=== PATIENT | male | born 1980 | race Caucasian/White ===

== ENCOUNTER 2023-12-22 10:31 | Emergency (ER) | payer OTHER, SELFPAY ==
[2023-12-22 10:38] VITALS: BP 159/108
--- NOTE | 2023-12-22 11:04 | ED.GENMED ---
History of Present Illness
General
Chief Complaint: Chest Pain
Time Seen by Provider: 12/22/23 11:04
Travel History
Have you had any contact with someone who has COVID-19?: No
Do you have any symptoms of coronavirus? Fever > 100 degrees, chills, cough, shortness of breath, sore throat, loss of taste or smell, muscle aches, or headache?: No
History of Present Illness
History of Present Illness:
HPI: Patient presents with left-sided chest discomfort/shortness of breath over the past 2 weeks. This has been constant over the past 2 weeks and there has been no exertional worsening; there has been no worsening today but he was just frustrated
and concerned that has been ongoing and can get to see a nub card tender he try to get into see a nub card tender however cannot be seen in the [facility] area until January. His younger brother had a stent placed recently. His father also has
coronary disease however this patient has no other cardiac risk factors other than history of smoking. He has seen Dr. Pearce about 6 years ago.
EXAM:
GENERAL: Well appearing in no distress
HEENT: Moist oral mucosa
CARDIOVASCULAR: No murmurs, normal heart rate, regular rhythm, No chest wall tenderness
PULMONARY: No respiratory distress, breath sounds are clear and equal
ABDOMEN: Soft with no peritoneal signs, no tenderness
NEUROLOGIC: Excellent strength all extremities, no coordination deficits
PSYCHIATRIC: Appropriate mental status, normal insight and judgement
EXTREMITIES: Nontender, no edema, moves all extremities equally
SKIN: No rash, no lesions, tattoos noted
TIME OF INITIAL ENCOUNTER: 11:05 AM
NUMBER AND COMPLEXITY OF PROBLEMS ADDRESSED AT THE ENCOUNTER
� Chronic conditions affecting care: GERD
� Acute Exacerbation and/or Progression of Chronic Illness: This is an acute problem
� Differential Diagnosis includes: Noncardiac chest pain, ACS, exacerbation of GERD, pneumothorax unlikely, pneumonia very unlikely, PE
AMOUNT AND/OR COMPLEXITY OF DATA TO BE REVIEWED AND ANALYZED
� I performed an independent evaluation of and my interpretation is:
EKG: Sinus 66, leftward axis deviation, no acute ST abnormality
CT:
X-rays: Chest x-ray is unremarkable
Laboratory Studies: Troponin negative, D-dimer is low, other labs are unremarkable
Other:
� Review of other/old records: No old records available for review in [facility]
� Clinical information was obtained by an independent historian: I spoke to father at bedside
� Prescriptions/Medications Considered but not given:
� Further testing considered but not performed:
RISK OF COMPLICATIONS AND/OR MORBIDITY OR MORTALITY OF PATIENT MANAGEMENT
� Social determinants of health affecting care: Lives at home
� Discussion with other providers:
� Escalation of care including admission/observation vs risk of discharge considered: The patient has had 2 weeks of constant pain with no exertional symptoms and no worsening today. Troponin negative along with normal EKG.
However he does have a concerning family history and we are arranging close outpatient follow-up. On reassessment, the patient still has ongoing chest discomfort that is described as 'it is just there'. This has been constant for 2 weeks. Will
try dose of Toradol prior to discharge. He is to follow-up with [facility]
Phy Exam
Physical Exam
Physical Exam:
See HPI
Scores
Heart Score for Chest Pain Patients
STEMI patient?: Not applicable
Course
Orders/Labs/Results
Orders:
Orders
12/22/23 10:32
ECG [Electrocardiogram (*1)] Urgent
Reason for Study: Chest Pain
EKG- Treatment ONCE
12/22/23 11:12
CR Chest - 2 Views Urgent
Comment:
Reason For Exam: L CP; sob
12/22/23 11:19
Complete Blood Count/With Diff Urgent
Comprehensive Metabolic Panel Urgent
D-Dimer Urgent
Troponin I Urgent
12/22/23 13:01
Ketorolac [Toradol] 15 mg IV NOW STA
12/22/23 13:03
Ketorolac [Toradol] 15 mg .ROUTE .STK-MED ONE
12/22/23 13:05
Ketorolac [Toradol] 15 mg IM NOW STA
12/22/23 13:06
Ketorolac [Toradol] 15 mg IV NOW STA
Abnormal Lab Results
12/22/23
11:19
ALT 88 H U/L
(0-50)
12/22/23 11:19
12/22/23 11:19
Vital Signs
Initial and Last Documented VS:
Initial Vital Signs
Temp Pulse Resp BP Pulse Ox
98.9 F 84 16 159/108 100
12/22/23 10:38 12/22/23 10:38 12/22/23 10:38 12/22/23 10:38 12/22/23 10:38
Last Documented Vital Signs
Temp Pulse Resp BP Pulse Ox
98.9 F 63 13 151/100 100
12/22/23 10:38 12/22/23 11:30 12/22/23 11:30 12/22/23 11:15 12/22/23 11:30
*Critical Care Note
Total Time (30-74mins, 75-104mins- exclusive of procedures): Not Applicable
ED Attending Note
-
Portions of this chart may have been created with voice recognition software.� Occasional wrong word or��sound alike� substitutions may have occurred due to the inherent limitations of voice recognition software.
Discharge Plan
Departure
Patient Disposition: Home (Routine Discharge)
Date of Disposition: 12/22/23
Time of Disposition: 13:00
Patient with high blood pressure during this ER visit?: Yes
Discharge Problem:
Chest pain
Instructions: Chest Pain [facility] Follow Up
Prescriptions:
No Action
No Current Medications
0
Referrals:
NONE,* [Family Provider] -
Activity Restrictions/Additional Instructions:
Somebody from [facility] should be calling you for follow-up. Return here if worse. Cardiac blood work (troponin) as well as D-dimer (test for blood clot) are both negative. EKG is normal.
Interventions
Interventions:
*Risk Screen - Suicide Last Done: 12/22/23 11:16
*General Assessment Last Done: 12/22/23 11:16
*Neglect/Abuse Screening Last Done: 12/22/23 11:16
*ED COVID-19 Vaccine History Last Done: 12/22/23 10:38
ED- Cardiac Assessment Last Done: 12/22/23 11:16
Discharge Date and Time
Print Language: ARABIC
[2023-12-22 11:15] VITALS: BP 151/100
[2023-12-22 11:16] VITALS: BMI 26.4
[2023-12-22 11:36] LABS: % Basophils 0.4 % (0-2); % Eosinophils 0.3 % (0-6); % Immature Granulocytes 0.3 % (0-0.5); % Monocytes 7.6 % (1.7-9.3); % Neutrophils 65.4 % (42.2-75.2); Absolute Lymphocytes 1.8 10^3/uL (1.2-3.4); Absolute Monocytes 0.5 10^3/uL (0.1-0.6); Absolute Neutrophils 4.6 10^3/uL (1.4-6.5); Hematocrit 44.7 % (39.0-52.0); Hemoglobin 15.3 g/dL (13.0-18.0); Mean Corp Hgb Conc. 34.2 g/dL (33.0-37.0); Mean Corpuscular Hgb 30.1 pg (27.0-31.0); Mean Platelet Volume 9.8 fL (7.4-10.4); Nucleated Red Blood Cells % 0 % (-); Platelet Count 248 10^3/uL (130-400); Red Blood Cell Count 5.08 10^6/uL (4.70-6.10); Red Cell Dist. Width 12.3 % (11.5-14.5)
[2023-12-22 11:52] LABS: D-Dimer < 0.27 ug/mlFEU (0.00-0.50)
[2023-12-22 11:56] LABS: ALT (SGPT) 88 U/L (0-50); AST (SGOT) 44 U/L (17-59); Albumin 4.4 g/dl (3.5-5.0); Alkaline Phosphatase 66 U/L (38-126); Blood Urea Nitrogen 18 mg/dl (9-20); Calcium 9.7 mg/dl (8.4-10.2); Carbon Dioxide 27 mmol/L (22-30); Chloride 106 mmol/L (98-107); Estimated Creatinine Clearance 110 ml/min; Glucose 96 mg/dl (70-99); Potassium 4.4 mmol/L (3.5-5.1); Sodium 138 mmol/L (135-145); Total Bilirubin 0.8 mg/dl (0.2-1.3); Total Protein 7.6 g/dl (6.3-8.2); eGFR > 60.00
[2023-12-22 12:02] LABS: Troponin I < 0.012 ng/ml
[2023-12-22 12:04] VITALS: BP 150/99
[2023-12-22 13:00] VITALS: BP 131/93
[2023-12-22] MEDS: TORADOL 15 MG IV (13:06)
== END 2023-12-22 13:35 | disposition home or self-care (01) ==
LOC: EMR 10:31
PROVIDERS: EMERGENCY PHYSICIAN Emergency Medicine
DX: R07.89 Other chest pain (principal); Z82.49 Family history of ischemic heart disease and other diseases of the circulatory system; Z87.891 Personal history of nicotine dependence
CPT/HCPCS: 99283; 71046; 80053; 84484; 85025; 85379; 93005